=== PATIENT | male | born 1960 | race Caucasian/White ===

== ENCOUNTER → 2021-05-15 | Outpatient (CLI) | payer OTHER ==
[~2021-05-15] MED LIST: CARDIZEM CD180 MG PO; OTC ALLERGY MED; ZANTAC
== END ==
LOC: M.CT 08:59
PROVIDERS: ATTEND Family Medicine
DX: Z13.6 Encounter for screening for cardiovascular disorders (principal); I25.10 Atherosclerotic heart disease of native coronary artery without angina pectoris